=== PATIENT | male | born 1960 | race Caucasian/White ===

== ENCOUNTER 2018-04-14 12:15 | Emergency (ER) | payer OTHER ==
[~2018-04-14 12:15] MED LIST: Iopamidol 370 76% 100 ML VIAL ONE
[2018-04-14 13:26] LABS: #Basophils 0.1 thou/uL (0.0-0.2); #Lymphocytes 0.8 thou/uL (1.20-3.40); #Monocytes 0.9 thou/uL (0.11-0.59); #Neutrophils 5.2 thou/uL (1.40-6.50); %Basophils 0.9 % (0.0-1.0); %Eosinophils 0.6 % (0.0-10.0); %Monocytes 12.4 % (0.0-10.0); %Neutrophils 74.1 % (42.0-75.0); Hemoglobin 15.1 g/dL (14.0-18.0); Mean Corpuscular HGB CONC 35.3 g/dL (32.0-36.0); Mean Corpuscular Hemoglobin 30.3 pg (27.0-31.0); Mean Platelet Volume 9.6 fL (7.4-10.4); PLT Morphology Comment Appears Decreased; Platelet Count 112 thou/uL (130-400); RBC Distribution Width 11.2 % (11.5-14.5); RBC Morphology Normal; Red Blood Cell (RBC) Count 4.97 mill/uL (4.70-6.10)
[2018-04-14 13:29] LABS: ALT (SGPT) 32 U/L (8-55); AST (SGOT) 24 U/L (5-34); Alkaline Phosphatase 48 U/L (40-150); Anion Gap 14 mmol/L (10-20); BUN (Urea Nitrogen) 12 mg/dL (8.4-25.7); Bilirubin, Total 0.8 mg/dL (0.2-1.2); Calc. Creatinine Clearance 0 mL/min (70-130); Carbon Dioxide 22 mmol/L (22-29); Chloride 102 mmol/L (98-107); Estimated GFR-MDRD 76; Globulin 2.4 g/dL (2.4-3.5); Glucose 106 mg/dL (70-105); Lipase 41 U/L (8-78); Protein, Total 6.4 g/dL (6.0-8.3); Sodium 134 mmol/L (136-145)
[2018-04-14 13:32] LABS: MDiff Complete? YES
[2018-04-14] MEDS ORDERED: Ketorolac Tromethamine 30 MG/ML VIAL ONE (13:59)
[2018-04-14 14:43] LABS: Bilirubin Negative (Negative); Blood, Urine Trace (Negative); Clarity Clear (Clear); Glucose, Urine (Dipstick) Negative (Negative); Leukocyte Negative (Negative); Nitrite Negative (Negative); Protein, Urine (Dipstick) Negative (Neg-Trace); Urobilinogen 0.2 mg/dL (0.2-1.0)
[2018-04-14 14:46] LABS: RBC/HPF 0-3 HPF (0-3)
[2018-04-14 14:47] LABS: Bacteria/HPF Rare-Few HPF (None Seen); Squamous Epithelial None Seen HPF (0-3); WBC/HPF None Seen HPF (0-3)
--- NOTE | 2018-04-14 15:15 | CT ---
CT ABDOMEN AND PELVIS WITH ORAL AND IV CONTRAST: HISTORY: Abdominal pain, vomiting, diarrhea, partial colectomy. FINDINGS: The lung bases are clear. There are a few small low-density lesions in the liver, statistically like ly benign findings. The spleen, pancreas, adrenal glands, and kidneys are normal. No calcified gall stones are seen. No free air, free fluid, or lymphadenopathy is seen in the abdomen or pelvis. There are vascular calcifications without evidence of aneurysmal dilatation of the abdominal aorta. The small bowel loops are not abnormally dilated. A normal-appearing appendix is seen. There is thi ckening of the wall of the abdominal ileum, cecum, ascending colon, and the proximal transverse colon . There is sigmoid diverticulosis without evidence of diverticulitis. IMPRESSION: 1. Bowel wall thickening involving the common ileum and the proximal colon. This finding is nonspec ific and may be due to inflammation, infection, or infiltrative disorders. Further evaluation with c olonoscopy would be helpful. 2. Sigmoid diverticulosis. POS: FERNANDO
[2018-04-14] MEDS ORDERED: Ciprofloxacin Lactate/D5W 400 mg/200 ml Premix ONE (15:28)
[2018-04-14] MEDS ORDERED: metroNIDAZOLE 500 MG/100 ML BAG ONE (17:18)
== END 2018-04-14 18:24 | disposition home or self-care (01) ==
LOC: SCSER 12:15
DX: K52.9 Noninfective gastroenteritis and colitis, unspecified (principal); E78.5 Hyperlipidemia, unspecified; F17.210 Nicotine dependence, cigarettes, uncomplicated; Z86.718 Personal history of other venous thrombosis and embolism
CPT/HCPCS: 36415; 74177; 80053; 81003; 81015; 83690; 85025; 96361; 96365; 96366; 96367; 96375; J0744; J1885